=== PATIENT | female | born 1980 | race Two or more races ===

== ENCOUNTER 2023-05-11 08:15 | Inpatient (IN) | payer OTHER ==
[~2023-05-11] VITALS: Ht 162.6 cm; Wt 77.1 kg
[~2023-05-11 08:15] MED LIST: BUDESONIDE0.5 MG/2 M IH; FLONASE ALLERG9.9 ML NASAL; IPRAT-ALBUT 0.5-3 ML IH; MEDROLPACK PO; PROAIR HFA8.5 GM IH; ZITHROMAX500 MG PO
[2023-05-11 11:09] LABS: INR 0.97; PARTIAL THROMBOPLASTIN TIME 28.5 SECONDS (22.0-34.0); PROTHROMBIN TIME 10.2 SECONDS (9.0-11.5)
[2023-05-18 17:18] LABS: MEAN CELL VOLUME 75.7 fL (80.00-100.00); MEAN CORPUSCULAR HEMOGLOBIN 24.5 pg (27.00-32.0); MEAN CORPUSCULAR HGB CONC 32.4 g/dl (32.0-36.0); PLATELET COUNT 327 K/uL (150-450); RED BLOOD COUNT 4.89 M/uL (4.00-6.00); RED CELL DISTRIBUTION WIDTH 15.9 % (11.5-14.5)
[2023-05-18 19:46] LABS: CALCIUM 8.7 mg/dL (8.5-10.1); CREATININE SERUM 0.72 mg/dL (0.55-1.02); GFR 88.41; POTASSIUM 4.36 mEq/L (3.5-5.1)
[2023-05-19 04:35] LABS: HEMATOCRIT 31.1 % (36.0-45.00); HEMOGLOBIN 10.2 g/dL (12.0-15.00); MEAN CORPUSCULAR HEMOGLOBIN 24.6 pg (27.00-32.0); MEAN CORPUSCULAR HGB CONC 32.8 g/dl (32.0-36.0); PLATELET COUNT 291 K/uL (150-450); RED BLOOD COUNT 4.14 M/uL (4.00-6.00); RED CELL DISTRIBUTION WIDTH 15.8 % (11.5-14.5)
[2023-05-19 04:58] LABS: CREATININE SERUM 0.72 mg/dL (0.55-1.02); GFR 88.41; POTASSIUM 4.24 mEq/L (3.5-5.1)
== END 2023-05-19 12:20 | disposition home or self-care (01) | DRG 743 ==
LOC: OB/GYN 05-18 07:00 → O/R 05-18 07:00 → SURH 05-18 07:00 → OB/GYN 05-18 13:45
PROVIDERS: ADMIT Obstetrics & Gynecology; ATTEND Obstetrics & Gynecology
PROC: 0UT74ZZ Resection of Bilateral Fallopian Tubes, Percutaneous Endoscopic Approach (ICD-10-PCS; 2023-05-18)
PROC: 0DNU4ZZ Release Omentum, Percutaneous Endoscopic Approach (ICD-10-PCS; 2023-05-18)
PROC: 0TNB4ZZ Release Bladder, Percutaneous Endoscopic Approach (ICD-10-PCS; 2023-05-18)
PROC: 0USG4ZZ Reposition Vagina, Percutaneous Endoscopic Approach (ICD-10-PCS; 2023-05-18)
PROC: 0UT94ZZ Resection of Uterus, Percutaneous Endoscopic Approach (ICD-10-PCS; principal; 2023-05-18 07:00)
DX: D25.2 Subserosal leiomyoma of uterus (principal); N73.6 Female pelvic peritoneal adhesions (postinfective); Z20.822 Contact with and (suspected) exposure to COVID-19